=== PATIENT | male | born 1950 | race African-American/Black ===

== ENCOUNTER 2021-11-28 06:29 | Inpatient (IN) | payer OTHER ==
[~2021-11-28] VITALS: Ht 185.4 cm; Wt 63.5 kg
--- NOTE | 2021-11-28 06:43 | NUR ---
PRESENTED TO THE ER FOR EVALUATION OF EPISDOE OF L SIDED CP, DIFFICULTY BREATHING AND PALPITATION LAST NIGHT AROUND 2 AM WHICH WAS RELIVED BY ITSELF. PATIENT DENIED ANY PAIN OR DISCOMFORT AT THIS TIME. W/ HX OF HTN AND HLD. PT AMBULATORY TO ER BED 9, WAS PLACED ON A MONITOR. VSS. WILL CONT TO MONITOR.
--- NOTE | 2021-11-28 06:55 | NUR ---
RFA #18G S/L BLOOD COLLECTED AND SENT TO LAB
--- NOTE | 2021-11-28 06:56 | NUR ---
RN AT PT'S BEDSIDE FOR EKG
--- NOTE | 2021-11-28 07:05 | NUR ---
Reciv d pt f gladys Toure rn pt awake and alert respiration spont and easy no palpation
--- NOTE | 2021-11-28 07:10 | NUR ---
DIRECTOR OF ENTERPRISE ARCHITECTURE AT PT'S BEDSIDE
[2021-11-28 07:11] LABS: BASOPHILS # (AUTO) 0.1 K/uL (0.0-0.2); EOSINOPHILS % (AUTO) 1.7 % (0.0-6.0); HEMATOCRIT 43 % (39-51); HEMOGLOBIN 14.1 g/dL (13.5-17.5); LYMPHOCYTES # (AUTO) 1.9 K/uL (0.8-4.8); LYMPHOCYTES % (AUTO) 36.8 % (20.0-44.0); MEAN CORPUSCULAR HGB CONC 33 g/dl (31.0-36.0); MEAN CORPUSCULAR VOLUME 84 fL (80-96); MONOCYTES # (AUTO) 0.4 K/uL (0.1-1.30); MONOCYTES % (AUTO) 8.3 % (2.0-12.0); NEUTROPHILS # (AUTO) 2.7 K/uL (1.8-8.9); NEUTROPHILS % (AUTO) 52.2 % (43.0-81.0); PLATELET COUNT (AUTO) 163 K/uL (150-450); RED BLOOD CELL COUNT(AUTO) 5.17 MIL/uL (4.5-6.0); WHITE BLOOD COUNT (AUTO) 5.1 K/uL (4.3-11.0)
[2021-11-28 07:22] LABS: CALCIUM, SERUM 10.9 mg/dL (8.5-10.1); CARBON DIOXIDE 28 mmol/L (21-32); CHLORIDE 106 mmol/L (98-107); CREATININE 1.2 mg/dL (0.6-1.3); GLUCOSE 109 mg/dL (74-106); POTASSIUM 3.1 mmol/L (3.5-5.1); SODIUM SERUM 141 mmol/L (136-145); UREA NITROGEN, BLOOD 25 mg/dL (7-18)
[2021-11-28 07:28] LABS: ALANINE AMINOTRANSFERASE 44 U/L (12-78); ALBUMIN 3.6 g/dL (3.4-5.0); ALKALINE PHOSPHATASE 93 U/L (46-116); ASPARTATE AMINOTRANSFERASE 27 U/L (15-37); BILIRUBIN,DIRECT 0.1 mg/dL (0.0-0.2); BILIRUBIN,TOTAL 0.4 mg/dL (0.2-1.0); TOTAL PROTEIN, SERUM 6.9 g/dL (6.4-8.2)
--- NOTE | 2021-11-28 08:40 | NUR ---
lab called to f/o on Troponin result
--- NOTE | 2021-11-28 09:03 | NUR ---
deshawn quinn sent to lab
--- NOTE | 2021-11-28 09:25 | NUR ---
DR. RENDON NOTEFED AND AWARE CRITICALE LAB TROPONIN 343
[2021-11-28] MEDS ORDERED: POTASSIUM CHLORIDE 20 MEQ TAB.PRT.SR PO ONE ×2 (09:30→09:45)
[2021-11-28] MEDS ORDERED: ASPIRIN EC 325 MG TABLET.DR PO ONE ×2 (09:30→09:45)
[2021-11-28] MEDS ORDERED: ENOXAPARIN SODIUM 60 MG/0.6 ML DISP.SYRIN SQ ONE ×2 (09:30→09:45)
[2021-11-28] MEDS ORDERED: IV NS 0.9% 1,000 ML IV ONE (09:30)
--- NOTE | 2021-11-28 10:30 | NUR ---
WATING FOR TELMETRY BED
[2021-11-28] MEDS ORDERED: ATOR80TA PO (10:48)
[2021-11-28] MEDS ORDERED: SOTA80TA PO (10:48)
[2021-11-28] MEDS ORDERED: CLOP75TA15 PO (10:48)
[2021-11-28] MEDS ORDERED: OLME1TAB90 PO (10:48)
--- NOTE | 2021-11-28 11:20 | NUR ---
epic paged, awaiting hospitalist call back.
--- NOTE | 2021-11-28 12:05 | NUR ---
bed assigned going to 313.1
--- NOTE | 2021-11-28 12:32 | NUR ---
report given to glendy lynne. awaiting transfer to floor.
--- NOTE | 2021-11-28 13:00 | NUR ---
RN NOTE- PT BROUGHT TO FLOOR . AOX4, VS STABLE. LUNCH ORDERED, BEGIN ADMIT PROCESS
--- NOTE | 2021-11-28 13:05 | NUR ---
CONTINUOUS STILL OPERATOR NOTE- 71 Y/O MALE BROUGHT FROM ED WITH CHEST PAIN AT HOME. PT STATED HEART WAS 'FLUTTERING'. EKG SHOWS AFIB. NO PAST HX OF AFIB REPORTED. TROPONIN AT 286 TRENDING UPWARD TO 343. MD ADMITTED TO MONITOR / TELE. AOX4, AMBULATORY, VS STABLE, INTERACTIVE, SKIN INTACT. PMHX OF RT KNEE REPLACEMENT IN 2009 AND HERNIA SURGERY IN 2020. MODERNA COVID VACC X2, PNA VACC AND FLU VACC BUT CANT RECALL DATES. BOTH RECENT. DENIES PAIN, NAUSEA, ANXIOUSNESS. CHEST CLEAR, ABDOMEN W POS BS THROUGHOUT. MERCADO WITH FROM. DIET ORDERED, TELE MONITOR PLACED, DR WHITMAN NOTIFIED OF ADMIT. SIDE RAILS UP, CALL LIGHT IN REACH, MONITOR / ASSIST
[2021-11-28 16:02] VITALS: BP 122/77
[2021-11-28] MEDS ORDERED: Z GUARD REMEDY 4 OZ OINT TP PRN (17:00)
[2021-11-28] MEDS ORDERED: ONDANSETRON HCL/PF 4 MG/2 ML VIAL IVP PRN (17:00)
[2021-11-28] MEDS ORDERED: ACETAMINOPHEN 325 MG TABLET PO PRN (17:00)
[2021-11-28] MEDS ORDERED: HYDROCODONE/APAP 5/325MG TABLET PO PRN (17:00)
[2021-11-28] MEDS ORDERED: ENOXAPARIN SODIUM 60 MG/0.6 ML DISP.SYRIN SQ SCH (17:00)
[2021-11-28] MEDS ORDERED: MORPHINE SULFATE INJ 2 MG/ML DISP.SYRIN IV PRN (17:00)
[2021-11-28] MEDS ORDERED: MAG HYDROX/AL HYDROX/SIMETH 30 ML UDC PO PRN (17:00)
[2021-11-28] MEDS ORDERED: MAGNESIUM HYDROXIDE 30 ML UDC PO PRN (17:00)
[2021-11-28] MEDS ORDERED: ZOLPIDEM TARTRATE 5 MG TABLET PO PRN (17:00)
--- NOTE | 2021-11-28 18:45 | NUR ---
RN CLOSING NOTE Patient sitting in bed, AOx4 with friend at bedside. Afebrile and not on any form of acute distress. Breathing even and non labored. No c/o pain or discomfort at this time of the shift. With IV access on R lower forearm G20. Patient is for Echocardiogram and called tech to f/u status. Tech at bedside. Safety measures in place. Kept bed in locked and in low position to reduce injury. Advised to use the call light when in need of assistance. All nursing needs attended.
--- NOTE | 2021-11-28 19:35 | NUR ---
FOREST FIRE PREVENTION SPECIALIST OPENING NOTE Received patient resting in bed, awake. Pt A/O x4, able to verbalize needs. No s/s of acute distress noted. Breathing even and non labored. No c/o pain or discomfort at this time. Pt has IV access to Right lower forearm G 20. Safety measures in place: bed locked, and in low position. Call light within reach, side rails up X 2. Will continue to monitor pt.
[2021-11-28 20:35] VITALS: BP 131/66
[2021-11-28] MEDS: ENOXAPARIN SODIUM 60 MG/0.6 ML DISP.SYRIN SQ SCH (21:21)
[2021-11-28] MEDS ORDERED: ATORVASTATIN 40 MG TABLET PO SCH (22:00)
[2021-11-29 00:06] VITALS: BP 113/54
[2021-11-29 04:30] VITALS: BP 132/104
[2021-11-29 05:58] LABS: BASOPHILS % (AUTO) 0.5 % (0.0-2.0); HEMATOCRIT 42 % (39-51); LYMPHOCYTES # (AUTO) 2.2 K/uL (0.8-4.8); LYMPHOCYTES % (AUTO) 47.4 % (20.0-44.0); MEAN CORPUSCULAR HGB CONC 33 g/dl (31.0-36.0); MEAN CORPUSCULAR VOLUME 83 fL (80-96); MONOCYTES # (AUTO) 0.3 K/uL (0.1-1.30); MONOCYTES % (AUTO) 7.2 % (2.0-12.0); NEUTROPHILS % (AUTO) 42.9 % (43.0-81.0); PLATELET COUNT (AUTO) 145 K/uL (150-450); RED BLOOD CELL COUNT(AUTO) 5.08 MIL/uL (4.5-6.0); WHITE BLOOD COUNT (AUTO) 4.6 K/uL (4.3-11.0)
[2021-11-29 07:04] LABS: CALCIUM, SERUM 10.6 mg/dL (8.5-10.1); CREATININE 0.9 mg/dL (0.6-1.3); MAGNESIUM 1.8 mg/dL (1.8-2.4); PHOSPHORUS 2.3 mg/dL (2.5-4.9); POTASSIUM 3.3 mmol/L (3.5-5.1)
--- NOTE | 2021-11-29 07:05 | NUR ---
[employer]ATIC CLOSING NOTE Left patient resting in bed, awake. Pt A/O x4, able to verbalize needs. No s/s of acute distress noted. Breathing even and non labored. No c/o pain or discomfort at this time. Pt has IV access to Right lower forearm G 20. All meds administered in timely manner.Safety measures in place: bed locked, and in low position. Call light within reach, side rails up X 2. Will endorse pt's care to AM shift nurse.
--- NOTE | 2021-11-29 07:06 | NUR ---
OFFICE EXECUTIVE OPENING NOTES RECEIVED PATIENT IN BED WATCHING TV. A/Ox4, ON ROOM AIR, NO S/S OF RESPIRATORY DISTRESS OR SOB. ON TELE MONITORING SHOWING SINUS RHYTHM HR 64. NO COMPLAINTS OF CHEST PAIN OR CARDIAC DISTRESS. IV ACCESS R FA#20 SL, INTACT AND PATENT. SKIN INTACT, PATIENT IS AMBULATORY. SAFETY MEASURES IN PLACE:BED LOCKED AND IN LOWEST POSITION, SIDE RAILS UP x2, HOB ELEVATED, CALL LIGHT WITHIN REACH, BED ALARM ON. WILL CONTINUE TO MONITOR.
[2021-11-29 07:09] LABS: THYROID STIMULATING HORMONE 1.474 uIU/mL (0.358-3.74)
[2021-11-29 08:35] VITALS: BP_SYST 146; BP_SYST 156; BP_DIAS 110; BP_DIAS 94
[2021-11-29] MEDS ORDERED: LOSARTAN POTASSIUM 50 MG TABLET PO SCH (09:00)
[2021-11-29] MEDS ORDERED: Medication Not On Formulary EA (Olmesartan/Hydrochlorothiazide (Olmesartan-Hctz 40-12.5 PO SCH (09:00)
[2021-11-29] MEDS ORDERED: ASPIRIN EC 81 MG TABLET.DR PO SCH (09:00)
[2021-11-29] MEDS ORDERED: SOTALOL HCL 80 MG TABLET PO SCH (09:00)
[2021-11-29] MEDS ORDERED: HYDROCHLOROTHIAZIDE 25 MG TABLET PO SCH (09:00)
[2021-11-29] MEDS ORDERED: CLOPIDOGREL BISULFATE 75 MG TABLET PO SCH (09:00)
[2021-11-29] MEDS: ENOXAPARIN SODIUM 60 MG/0.6 ML DISP.SYRIN SQ SCH (09:29)
[2021-11-29 12:00] VITALS: BP 141/76
[2021-11-29] MEDS ORDERED: K PHOS NEUTRAL 250 MG TABLET PO ONE (12:00)
--- NOTE | 2021-11-29 14:00 | NUR ---
CUSTOMER SUPPORT MANAGER NOTES PATIENT REQUESTED TO LEAVE HOSPITAL. RISKS AND BENEFITS EXPLAINED, BUT PATIENT STILL WISHED TO LEAVE AFTER ALL RISKS AND BENEFITS WERE EXPLAINED. AMA FORM SIGNED AND FILED INTO CHART. IV ACCESS REMOVED AND PRESSURE DRESSING APPLIED. ID BAND REMOVED. PATIENT DID NOT WANT ANY PAPERWORK BESIDES COPY OF AMA FORM. PATIENT LEFT UNIT WITH SIGNIFICANT OTHER @1300, ALL BELONGINGS WITH PATIENT. CHARGE NURSE AND MD AWARE OF DEPARTURE.
== END 2021-11-29 12:50 | disposition left against medical advice (07) | DRG 281 ==
LOC: ER 06:31 → TELE 12:23
PROVIDERS: ADMIT Student in an Organized Health Care Education/Training Program; ATTEND Student in an Organized Health Care Education/Training Program
DX: I21.4 Non-ST elevation (NSTEMI) myocardial infarction (principal); D68.69 Other thrombophilia; I48.91 Unspecified atrial fibrillation; I10 Essential (primary) hypertension; E78.5 Hyperlipidemia, unspecified; Z79.899 Other long term (current) drug therapy; Z20.822 Contact with and (suspected) exposure to COVID-19; Z79.02 Long term (current) use of antithrombotics/antiplatelets; Z95.5 Presence of coronary angioplasty implant and graft; I25.10 Atherosclerotic heart disease of native coronary artery without angina pectoris
CPT/HCPCS: 36415; 71045-TC; 80048-TC; 80061-TC; 80076-TC; 83735-TC; 84100-TC; 84443-TC; 84484-TC; 85025-TC; 85730-TC; 87081-TC; 93307-TC; C9803; G0378; J1650; J7030

== ENCOUNTER 2022-07-12 07:10 | Emergency (ER) | payer OTHER ==
[~2022-07-12] VITALS: Ht 185.4 cm; Wt 70.3 kg
[~2022-07-12 07:10] MED LIST: ATOR80TA PO; CLOP75TA15 PO; OLME1TAB90 PO; SOTA80TA PO
--- NOTE | 2022-07-12 07:19 | NUR ---
BIBS C/O TESTICLE PAIN X3DAYS P/S 08/18. PT A/OX3. TOLERATING R/A WELL WITH NO RESP DISTRESS. SAFETY MEASURES IN PLACE.
--- NOTE | 2022-07-12 07:46 | NUR ---
US TECH ETA [id number]
--- NOTE | 2022-07-12 07:46 | NUR ---
PROVIDED PT WITH URINAL AWAITING URINE SAMPLE
--- NOTE | 2022-07-12 07:56 | NUR ---
PT AMBULATED TO RESTROOM TO ATTEMPT TO GIVE URINE SAMPLE.
--- NOTE | 2022-07-12 08:01 | NUR ---
URINE SENT TO LAB
--- NOTE | 2022-07-12 08:32 | NUR ---
Patient is resting comfortably in bed with eyes closed. Easily aroused. VSS
--- NOTE | 2022-07-12 08:37 | NUR ---
US TECH AT PT'S BEDSIDE
[2022-07-12 09:02] LABS: BILIRUBIN,URINE 1+ (NEGATIVE); COLOR,URINE YELLOW (YELLOW); LEUKOCYTE ESTERASE ,URINE NEGATIVE (NEGATIVE); NITRITE, URINE NEGATIVE (NEGATIVE); PROTEIN,URINE 1+ mg/dl (NEGATIVE); UGLUCOSE NEGATIVE (NEGATIVE)
[2022-07-12 09:15] LABS: SQUAMOUS EPITHELIAL CELL,UR Rare /HPF (None Seen); WBC,URINE 0-2 /HPF (0-3)
[2022-07-12 09:17] LABS: BACTERIA,URINE Rare /HPF (None Seen)
[2022-07-12] MEDS ORDERED: LEVO500T90 PO (11:12)
[2022-07-12] MEDS ORDERED: IBUP-1955 PO (11:12)
[2022-07-12] MEDS ORDERED: CEFTRIAXONE 1 G VIAL ONE (11:24)
[2022-07-12] MEDS ORDERED: LIDOCAINE 1% INJ 50 ML MDV IJ ONE (11:26)
[2022-07-12] MEDS ORDERED: LIDOCAINE /MPF 1% VIAL 5 ML VIAL ONE (11:29)
[2022-07-12] MEDS ORDERED: CEFTRIAXONE 1 G VIAL IM ONE (11:30)
[2022-07-12 11:46] VITALS: BP 135/87
--- NOTE | 2022-07-12 11:46 | NUR ---
Patient discharged to home in stable condition. Written and verbal after care instructions given. Patient verbalizes understanding of instruction.
== END 2022-07-12 11:47 | disposition home or self-care (01) ==
LOC: ER 07:23
DX: N45.1 Epididymitis (principal); N43.3 Hydrocele, unspecified; N50.812 Left testicular pain; I10 Essential (primary) hypertension; I25.10 Atherosclerotic heart disease of native coronary artery without angina pectoris; I25.2 Old myocardial infarction; I48.91 Unspecified atrial fibrillation; E78.5 Hyperlipidemia, unspecified; Z79.01 Long term (current) use of anticoagulants; Z79.899 Other long term (current) drug therapy
CPT/HCPCS: 99285; 96372; 76870; 81001; J0696; J3490

== ENCOUNTER 2022-12-11 05:35 | Emergency (ER) | payer OTHER ==
[~2022-12-11] VITALS: Ht 185.4 cm; Wt 68.0 kg
[~2022-12-11 05:35] MED LIST changes: +IBUP-1955 PO; +LEVO500T90 PO
[2022-12-11 06:58] LABS: BASOPHILS % (AUTO) 0.5 % (0.0-2.0); EOSINOPHILS # (AUTO) 0.1 K/uL (0.0-0.7); HEMATOCRIT 45 % (39-51); HEMOGLOBIN 14.6 g/dL (13.5-17.5); LYMPHOCYTES # (AUTO) 1.5 K/uL (0.8-4.8); LYMPHOCYTES % (AUTO) 23.1 % (20.0-44.0); MEAN CORPUSCULAR HEMOGLOBIN 27 PG (26.0-33.0); MEAN CORPUSCULAR HGB CONC 32 g/dl (31.0-36.0); MEAN CORPUSCULAR VOLUME 82 fL (80-96); MONOCYTES # (AUTO) 0.7 K/uL (0.1-1.30); MONOCYTES % (AUTO) 10.5 % (2.0-12.0); NEUTROPHILS # (AUTO) 4.1 K/uL (1.8-8.9); NEUTROPHILS % (AUTO) 64.9 % (43.0-81.0); PLATELET COUNT (AUTO) 119 K/uL (150-450); RED CELL DISTRIBUTION WIDTH 15.5 % (11.5-15.0); WHITE BLOOD COUNT (AUTO) 6.3 K/uL (4.3-11.0)
[2022-12-11 07:04] LABS: ALANINE AMINOTRANSFERASE 37 U/L (12-78); ALBUMIN 3.4 g/dL (3.4-5.0); ALKALINE PHOSPHATASE 123 U/L (46-116); ASPARTATE AMINOTRANSFERASE 18 U/L (15-37); BILIRUBIN,DIRECT 0.1 mg/dL (0.0-0.2); BILIRUBIN,TOTAL 0.6 mg/dL (0.2-1.0); CALCIUM, SERUM 10.6 mg/dL (8.5-10.1); CARBON DIOXIDE 24 mmol/L (21-32); CHLORIDE 105 mmol/L (98-107); CREATININE 1.1 mg/dL (0.6-1.3); GLUCOSE 108 mg/dL (74-106); POTASSIUM 3.5 mmol/L (3.5-5.1); SODIUM SERUM 139 mmol/L (136-145); TOTAL PROTEIN, SERUM 7.4 g/dL (6.4-8.2); UREA NITROGEN, BLOOD 14 mg/dL (7-18)
[2022-12-11] MEDS ORDERED: ASPIRIN 325 MG TABLET PO ONE (08:00)
[2022-12-11] MEDS ORDERED: NITROGLYCERIN PACKET 1 GM PACKET TD ONE (08:00)
[2022-12-11] MEDS ORDERED: NITROGLYCERIN PACKET 1 GM PACKET ONE (08:00)
[2022-12-11] MEDS ORDERED: ASPIRIN 325 MG TABLET ONE (08:00)
[2022-12-11 12:10] VITALS: BP 130/81; TEMP 97.9; O2SAT 98
== END 2022-12-11 12:10 | disposition left against medical advice (07) ==
LOC: ER 05:43
DX: R07.89 Other chest pain (principal); I10 Essential (primary) hypertension; E78.5 Hyperlipidemia, unspecified; I48.91 Unspecified atrial fibrillation; Z79.899 Other long term (current) drug therapy; Z98.890 Other specified postprocedural states; Z60.2 Problems related to living alone
CPT/HCPCS: 36415; 71045-TC; 80048-TC; 80076-TC; 84484-TC; 85025-TC